=== PATIENT | female | born 2000 | race Two or more races ===

== ENCOUNTER 2022-04-24 19:50 | Emergency (ER) | payer MEDICAID, OTHER ==
[~2022-04-24] VITALS: Ht 165.1 cm; Wt 64.0 kg
[2022-04-24] MEDS ORDERED: LIDOCAINE 2%HCL (LOCAL ANESTH.) INJ 10ml MDV IJ ONE ×2 (21:45)
[2022-04-24] MEDS ORDERED: KETOROLAC TROMETH 30 MG/ML 1ML VIAL IV ONE (22:30)
[2022-04-24] MEDS ORDERED: cefTRIAXone 1GM/50ML D5W 50 ML IV ONE (22:30)
[2022-04-24] MEDS ORDERED: TRAM50TA2 PO (22:43)
[2022-04-24] MEDS ORDERED: CEFD300C2 PO (22:43)
[2022-04-24] MEDS ORDERED: NAPR500T31 PO (22:43)
[2022-04-25 00:43] VITALS: BP 142/88
== END 2022-04-24 23:31 | disposition home or self-care (01) ==
LOC: ER 19:50
DX: S01.01XA Laceration without foreign body of scalp, initial encounter (principal); R42 Dizziness and giddiness; M54.2 Cervicalgia; V43.62XA Car passenger injured in collision with other type car in traffic accident, initial encounter; Y93.89 Activity, other specified; Y92.488 Other paved roadways as the place of occurrence of the external cause; Y99.8 Other external cause status
CPT/HCPCS: 36415; 70450; 72125; 84702; 96365; 96375; 99285; J0696; J1885